=== PATIENT | male | born 1970 | race Two or more races ===

== ENCOUNTER 2021-12-29 18:03 | Emergency (ER) | payer OTHER ==
[~2021-12-29] VITALS: Ht 167.6 cm; Wt 102.1 kg
[2021-12-29 21:22] VITALS: BP 154/83
== END 2021-12-29 22:31 | disposition home or self-care (01) ==
LOC: ER 18:03
DX: M25.562 Pain in left knee (principal); X50.1XXA Overexertion from prolonged static or awkward postures, initial encounter; Y93.89 Activity, other specified; Y92.89 Other specified places as the place of occurrence of the external cause; Y99.8 Other external cause status
CPT/HCPCS: 73562